=== PATIENT | male | born 1960 | race Caucasian/White ===

== ENCOUNTER 2025-02-07 11:01 | Inpatient (IN) | payer MEDICAID, OTHER ==
[~2025-02-07] VITALS: Ht 172.7 cm; Wt 97.7 kg
--- NOTE | 2025-02-07 11:53 | ED.PDOC ---
GI ASSESSMENT HPI Comments This is a 64 year old male presenting to the ED with chief complaint of groin pain. Patient reports that he has been experiencing left sided inguinal hernia pain for the past 6 days with associated nausea and constipation. Patient relays that he has had it reduced before, but is unable to reduce it now. Patient denies any vomiting, diarrhea, fever, or chills. Chief Complaint: Abdominal Pain Time Seen by MD: 11:51 Reviewed Notes: Nurses Notes, Medications, Allergies Allergies: Coded Allergies: NO KNOWN ALLERGIES (Unverified , 02/07/25) Information Source: Patient Mode of Arrival: Ambulatory Timing: Days Duration: Since onset Prehospital treatment: None Quality: Sharp Vomitus: None Stool: Normal Severity: Moderate Recent: None Recent Hx of: None Pain Location: Other (Lt groin) Modifying Factors: Nothing Associated sign and symptoms: Nausea, Abdominal Pain Past Medical History PAST MEDICAL HISTORY: Denies Surgical History: Hernia Repair Family History Family History: Reviewed,noncontributory to illness Social History Smoker: Non-Smoker Alcohol: Denies ETOH Use Drugs: Denies Drug Use Lives In: Home Constitutional: denies: chills, diaphoresis, fatigue, fever, malaise, sweats, weakness, others EENTM: denies: blurred vision, double vision, ear bleeding, ear discharge, ear drainage, ear pain, ear ringing, eye pain, eye redness, hearing loss, mouth pain, mouth swelling, nasal discharge, nose bleeding, nose congestion, nose pain, photophobia, tearing, throat pain, throat swelling, voice changes, others Respiratory: denies: cough, hemoptysis, orthopnea, SOB at rest, shortness of breath, SOB with excertion, stridor, wheezing, others Cardiovascular: denies: chest pain, dizzy spells, diaphoresis, Dyspnea on exertion, edema, irregular heart beat, left arm pain, lightheadedness, palpitations, PND, syncope, others Gastrointestinal: reports: abdominal pain, nausea; denies: abdomen distended, blood streaked bowels, constipated, diarrhea, dysphagia, difficulty swallowing, hematemesis, melena, poor appetite, poor fluid intake, rectal bleeding, rectal pain, vomiting, others Genitourinary: denies: burning, dysuria, flank pain, frequency, hematuria, incontinence, penile discharge, penile sore, pain, testicle pain, testicle swelling, urgency, others Neurological: denies: dizziness, fainting, headache, left sided numbness, left sided weakness, numbness, paresthesia, pre-existing deficit, right sided numbness, right sided weakness, seizure, speech problems, tingling, tremors, we akness, others Musculoskeletal: denies: back pain, gout, joint pain, joint swelling, muscle pain, muscle stiffness, neck pain, others Integumetry: denies: bruises, change in color, change in hair/nails, dryness, laceration, lesions, lumps, rash, wounds, others Allergic/Immunocompromised: denies: Difficulty Healing, Frequent Infections, Hives, Itching, others Hematologic/Lymphatic: denies: anemia, blood clots, easy bleeding, easy bruising, swollen glands, others Endocrine: denies: excessive hunger, excessive sweating, excessive thirst, excessive urination, flushing, intolerance to cold, intolerance to heat, unexplained weight gain, unexplained weight loss, others Psychiatric: denies: anxiety, bipolar disorder, depression, hopeless, panic disorder, schizophrenia, sleepless, suicidal, others All Other Systems: Reviewed and Negative Physical Exam General Appearance: Moderate Distress, Normal HEENT: Normal ENT Inspection, Pharynx Normal, TMs Normal Neck: Full Range of Motion, Non-Tender, Normal, Normal Inspection Respiratory: Chest Non-Tender, Lungs Clear, No Accessory Muscle Use, No Respiratory Distress, Normal Breath Sounds Cardiovascular: No Edema, No JVD, No Murmur, No Gallop, Normal Peripheral Pulses, Regular Rate/Rhythm Breast Exam: Deferred Gastrointestinal: No Organomegaly, Non Tender, No Pulsatile Mass, Normal Bowel Sounds, Soft Genitalia: Deferred Pelvic: Deferred Rectal: Deferred Extremities: No calf tenderness, Normal capillary refill, Normal inspection, Normal range of motion, Non-tender, No pedal edema Musculoskeletal : Apperance: Normal Neurologic: Alert, sagger preparer II-XII nml as Tested, No Motor Deficits, Normal Affect, Normal Mood, No Sensory Deficits Cerebellar Function: Normal Reflexes: Normal Skin: Dry, Normal Color, Warm Peripheral Pulses: 3+ Radial (R), 3+ Radial (L) Lymphatic: No Adenopathy Was a procedure done? Was a procedure done?: No GI differential Dx Differential Diagnosis: Constipation, Diverticular disease, Esophagitis, Gastritis/PUD, Gastroenteritis X-Ray, Labs, Meds, VS Vital Signs Date Time Temp Pulse Resp B/P (MAP) Pulse Ox O2 Delivery O2 Flow Rate FiO2 02/07/25 16:30 98.1 89 16 121/84 (96) 96 98.1 02/07/25 14:30 92 18 125/86 02/07/25 14:30 98.2 92 18 122/86 (98) 94 98.2 02/07/25 11:05 98.7 102 18 130/87 91 98.7 Lab Test 02/07/25 12:41 02/07/25 12:29 Range/Units White Blood Count 3.9 L 4.4-10.8 10^3/uL Red Blood Count 4.58 4.5-5.90 10^6/uL Hemoglobin 14.3 13.5-17.5 g/dL Hematocrit 42.1 41.0-53.0 % Mean Corpuscular Volume 92.1 80.0-100.0 fL Mean Corpuscular Hemoglobin 31.2 28.0-32.0 pg Mean Corpuscular Hemoglobin Concent 33.8 32.0-36.0 g/dL Red Cell Distribution Width 13.6 11.8-14.3 % Platelet Count 317 140-450 10^3/uL Mean Platelet Volume 6.3 L 6.9-10.8 fL Neutrophils (%) (Auto) 66.9 37.0-80.0 % Lymphocytes (%) (Auto) 21.9 10.0-50.0 % Monocytes (%) (Auto) 10.0 0.0-12.0 % Eosinophils (%) (Auto) 0.0 0.0-7.0 % Basophils (%) (Auto) 1.2 0.0-2.0 % Neutrophils # (Auto) 2.6 1.6-8.6 10 ^3/uL Lymphocytes # (Auto) 0.9 0.4-5.4 10 ^3/uL Monocytes # (Auto) 0.4 0-1.3 10 ^3/uL Eosinophils # (Auto) 0 0-0.8 10 ^3/uL Basophils # (Auto) 0 0-0.2 10 ^3/uL Nucleated Red Blood Cells 0.1 % Sodium Level 140 136-145 mmol/L Potassium Level 3.8 3.5-5.1 mmol/L Chloride Level 101 98-107 mmol/L Carbon Dioxide Level 31 20-31 mmol/L Anion Gap 8 5-15 Blood Urea Nitrogen 13 9-23 mg/dL Creatinine 0.63 L 0.700-1.30 mg/dL Glomerular Filtration Rate Calc 108 >90 mL/min BUN/Creatinine Ratio 20.6 H 10.0-20.0 Serum Glucose 85 74-106 mg/dL Calcium Level 9.6 8.7-10.4 mg/dL Urine Color Yellow Yellow Urine Clarity Clear Clear Urine pH 6.5 5.0-9.0 Urine Specific [place] 1.025 1.001-1.035 Urine Protein Negative Negative Urine Ketones Negative Negative Urine Blood Negative Negative /uL Urine Nitrite Negative Negative Urine Bilirubin Negative Negative Urine Urobilinogen 6 Negative mg/dL Urine Leukocyte Esterase Negative Negative /uL Urine RBC <1 0 - 3 /hpf Urine Microscopic WBC < 1 0-3 /HPF Urine Squamous Epithelial Cells None seen <5 /hpf Urine Bacteria None seen None Seen /hpf Urine Mucus Few None Seen Urine Glucose Normal Normal mg/dL Current Medications Medications (Trade) Dose Ordered Sig/Dayron Route Start Time Stop Time Status Last Admin Morphine Sulfate 4 mg ONCE ONCE IV 02/07/25 13:00 02/07/25 13:01 DC 02/07/25 14:30 Ondansetron HCl (Zofran) 4 mg ONCE ONCE IV 02/07/25 13:00 02/07/25 13:01 DC 02/07/25 14:29 Patient alert. Vitals stable. Came in because of left inguinal hernia. Answering all questions. Continues to have pain. Denies nausea vomiting. Had a bowel movement. Explained to the patient. Continue to monitor. Time of 1ST Reevaluation: 12:51 Reevaluation 1ST: Unchanged Patient Education/Counseling: Diagnosis, Treatment Family Education/Counseling: No Family Present SEPSIS Sepsis Screen Date sepsis recognized/suspect: Feb 07, 2025 Time Sepsis recognized/suspect: 1105 Recent Procedure: No On Antibiotic Therapy: No Respiratory Rate >20: No Heart Rate >90: No Temp<36 C (96.8 F) or >38.3 C: No SBP <90 or MAP <65 mmHG: No New Acute Mental Status Change: No Is the patient on CPAP, BIPAP,: No Physician Orders Ct Ab Pel Wo Con-No Oral Or Iv (02/07/25 11:52) Vital Signs Date Time Temp Pulse Resp B/P (MAP) Pulse Ox O2 Delivery O2 Flow Rate FiO2 02/07/25 16:30 98.1 89 16 121/84 (96) 96 98.1 02/07/25 14:30 92 18 125/86 02/07/25 14:30 98.2 92 18 122/86 (98) 94 98.2 02/07/25 11:05 98.7 102 18 130/87 91 98.7 Laboratory Tests Test 02/07/25 12:41 White Blood Count 3.9 10^3/uL (4.4-10.8) L Medications Medications Dose Ordered Sig/Dayron Route Start Time Stop Time Status Last Admin Dose Admin Morphine Sulfate 4 mg ONCE ONCE IV 02/07/25 13:00 02/07/25 13:01 DC 02/07/25 14:30 Ondansetron HCl 4 mg ONCE ONCE IV 02/07/25 13:00 02/07/25 13:01 DC 02/07/25 14:29 Departure 1 Departure Time of Disposition: 12:47 Impression: Primary Impression: Acute abdominal pain Additional Impression: Inguinal hernia Qualified Codes: K40.90 - Unilateral inguinal hernia, without obstruction or gangrene, not specified as recurrent Disposition: 09 ADMITTED INPATIENT Admit to: Med Surg Condition: Guarded Critical Care Note Critical Care Time?: No Stability Stability form required: No Heart Score Heart Score: Heart Score Response (Comments) Value History N/A 0 EKG N/A 0 Age N/A 0 Risk Factors N/A 0 Troponin N/A 0 Total 0 I personally scribed for MACARENA LEÓN MD ([email or web address]) on 02/07/25 at 11:53. Electronically submitted by Abiel Strickland ([email or web address]). MACARENA LEÓN MD Feb 07, 2025 11:53
[2025-02-07 12:44] LABS: Urine Protein, UAD Negative (Negative)
[2025-02-07 12:52] LABS: Hematocrit 42.1 % (41.0-53.0); Hemoglobin 14.3 g/dL (13.5-17.5); Mean Corpuscular Hemoglobin 31.2 pg (28.0-32.0); Mean Corpuscular Volume 92.1 fL (80.0-100.0); Nucleated Red Blood Cells % 0.1 %
[2025-02-07 13:00] LABS: Chloride 101 mmol/L (98-107); Potassium 3.8 mmol/L (3.5-5.1); Sodium 140 mmol/L (136-145)
[2025-02-07 13:01] LABS: Anion Gap 8 (5-15); Calcium 9.6 mg/dL (8.7-10.4); Carbon Dioxide 31 mmol/L (20-31)
[2025-02-07 13:06] LABS: BUN/Creatinine Ratio 20.6 (10.0-20.0); Blood Urea Nitrogen 13 mg/dL (9-23); Glucose 85 mg/dL (74-106)
[2025-02-07] MEDS: ONDANSETRON HCL 4 MG/2 ML VIAL IV ONE (14:29)
[2025-02-07] MEDS: MORPHINE SULFATE 4 MG/ML SYR/VIAL IV ONE (14:30)
[2025-02-07] MEDS ORDERED: ONDANSETRON HCL 4 MG/2 ML VIAL IV PRN (17:15)
[2025-02-07] MEDS ORDERED: DOCUSATE SOD 100 MG CAP PO PRN (17:15)
[2025-02-07] MEDS ORDERED: ACETAMINOPHEN 325 MG TAB PO PRN (17:15)
--- NOTE | 2025-02-07 18:09 | DVHHP2 ---
History of Present Illness Reason for Visit: Acute abdominal pain History of Present Illness The patient is a 64-year-old male with past medical history of hernia who presented to [facility] ED with complaint of groin pain. Patient reports that he has been experiencing left sided inguinal hernia pain for the past 6 days associated with nausea and constipation. Patient states that he had it reduced before, but is unable to reduce it now. Patient was seen and evaluated in the ED, laboratory data shows WBC 3.9, platelets 317, sodium 140, potassium 3.8, BUN 13, creatinine 0.63, GFR 108, glucose 85, calcium 9.6 blood pressure 121/84, heart rate 89, temperature 98.1 F, O2 saturation 94% on room air. Abdomen/pelvis CT results pending. Please see medication orders section in the computer. On my assessment, patient denied chest pain, no headache, dizziness, diaphoresis, shortness of breaths, no diarrhea, nausea, vomiting, fever, no chills. Patient was admitted for further evaluation and medical management. Past Medical History Hernia Past Surgical History Hernia Repair Family History Reviewed, noncontributory to the management of this case. Past Social History The patient lives at home, denies smoking, alcohol or illicit drugs abuse. Review of Systems Constitutional: Yes: Weakness; No: Fever, Chills, Sweats, Malaise, Other Eyes: No: Pain, Vision change, Conjunctivae inflammation, Eyelid inflammation, Other, Redness ENT: No: Ear pain, Ear discharge, Nose pain, Nose discharge, Nose congestion, Mouth pain, Mouth swelling, Throat pain, Throat swelling, Other Respiratory: No: Cough, Dry, Shortness of breath, SOB with excertion, Wheezing, Hemoptysis, Pleuritic Pain, Sputum, Wheezing, Other Cardiovascular: No: Chest Pain, Palpitations, Orthopnea, Paroxysmal Noc. Dyspnea, Edema, Lt Headedness, Other Gastrointestinal: Nausea, Abdominal Pain; No: Vomiting, Diarrhea, Constipation, Melena, Hematochezia, Other Genitourinary: No Dysuria, No Frequency, No Incontinence, No Hematuria, No Retention, No Other Musculoskeletal: No: other, neck pain, shoulder pain, arm pain, back pain, hand pain, leg pain, foot pain Skin: No: Rash, Lesions, Jaundice, Bruising, Other Neurological: No: Weakness, Numbness, Incoordination, Change in speech, Confusion, Seizures, Other Allergies: Coded Allergies: NO KNOWN ALLERGIES (Unverified , 02/07/25) Medications Current Medications Medications Dose Ordered Sig/Dayron Route Start Time Stop Time Status Last Admin Dose Admin Sodium Chloride 10 ml Q8HR IV 02/07/25 22:00 Acetaminophen/ Hydrocodone Bitart 1 tab Q4HP PRN PO 02/07/25 17:15 Ondansetron HCl 4 mg Q4HP PRN IV 02/07/25 17:15 Docusate Sodium 100 mg BIDPRN PRN PO 02/07/25 17:15 Acetaminophen 650 mg Q6HP PRN PO 02/07/25 17:15 Exam Vital Signs Vital Signs Date Time Temp Pulse Resp B/P (MAP) Pulse Ox O2 Delivery O2 Flow Rate FiO2 02/07/25 16:30 98.1 89 16 121/84 (96) 96 98.1 General Appearance: Alert, Oriented X3, Cooperative, No acute distress HEENT: Atraumatic, PERRLA, EOMI, Mucous membr. moist/pink Respiratory: Clear to auscultation, Normal air movement Cardiovascular: Regular rate, Normal S1, Normal S2, No murmurs Abdominal: Normal bowel sounds, Soft, No tenderness, No hepatospenomegaly, No masses Extremities: No clubbing, No cyanosis, No edema, Normal pulses, No tenderness/swelling Skin: No rashes, No significant lesion Neuro: Normal speech, Normal tone, Sensation intact, Cranial nerves 3-12 NL, Reflexes 2+, Other (Generalized weakness) Psych/Mental Status: Mental status NL, Mood NL Labs/Xrays Labs Test 02/07/25 12:41 02/07/25 12:29 Range/Units White Blood Count 3.9 L 4.4-10.8 10^3/uL Red Blood Count 4.58 4.5-5.90 10^6/uL Hemoglobin 14.3 13.5-17.5 g/dL Hematocrit 42.1 41.0-53.0 % Mean Corpuscular Volume 92.1 80.0-100.0 fL Mean Corpuscular Hemoglobin 31.2 28.0-32.0 pg Mean Corpuscular Hemoglobin Concent 33.8 32.0-36.0 g/dL Red Cell Distribution Width 13.6 11.8-14.3 % Platelet Count 317 140-450 10^3/uL Mean Platelet Volume 6.3 L 6.9-10.8 fL Neutrophils (%) (Auto) 66.9 37.0-80.0 % Lymphocytes (%) (Auto) 21.9 10.0-50.0 % Monocytes (%) (Auto) 10.0 0.0-12.0 % Eosinophils (%) (Auto) 0.0 0.0-7.0 % Basophils (%) (Auto) 1.2 0.0-2.0 % Neutrophils # (Auto) 2.6 1.6-8.6 10 ^3/uL Lymphocytes # (Auto) 0.9 0.4-5.4 10 ^3/uL Monocytes # (Auto) 0.4 0-1.3 10 ^3/uL Eosinophils # (Auto) 0 0-0.8 10 ^3/uL Basophils # (Auto) 0 0-0.2 10 ^3/uL Nucleated Red Blood Cells 0.1 % Sodium Level 140 136-145 mmol/L Potassium Level 3.8 3.5-5.1 mmol/L Chloride Level 101 98-107 mmol/L Carbon Dioxide Level 31 20-31 mmol/L Anion Gap 8 5-15 Blood Urea Nitrogen 13 9-23 mg/dL Creatinine 0.63 L 0.700-1.30 mg/dL Glomerular Filtration Rate Calc 108 >90 mL/min BUN/Creatinine Ratio 20.6 H 10.0-20.0 Serum Glucose 85 74-106 mg/dL Calcium Level 9.6 8.7-10.4 mg/dL Urine Color Yellow Yellow Urine Clarity Clear Clear Urine pH 6.5 5.0-9.0 Urine Specific [place] 1.025 1.001-1.035 Urine Protein Negative Negative Urine Ketones Negative Negative Urine Blood Negative Negative /uL Urine Nitrite Negative Negative Urine Bilirubin Negative Negative Urine Urobilinogen 6 Negative mg/dL Urine Leukocyte Esterase Negative Negative /uL Urine RBC <1 0 - 3 /hpf Urine Microscopic WBC < 1 0-3 /HPF Urine Squamous Epithelial Cells None seen <5 /hpf Urine Bacteria None seen None Seen /hpf Urine Mucus Few None Seen Urine Glucose Normal Normal mg/dL Abdomen/pelvis CT results pending SEPSIS Sepsis Screen Date sepsis recognized/suspect: Feb 07, 2025 Time Sepsis recognized/suspect: 1105 Recent Procedure: No On Antibiotic Therapy: No Respiratory Rate >20: No Heart Rate >90: No Temp<36 C (96.8 F) or >38.3 C: No SBP <90 or MAP <65 mmHG: No New Acute Mental Status Change: No Is the patient on CPAP, BIPAP,: No Physician Orders Ct Ab Pel Wo Con-No Oral Or Iv (02/07/25 11:52) Allergies (02/07/25 17:05) Code Status (02/07/25 17:05) Sodium Chloride Lock (Saline Lock Ns) (02/07/25 22:00) Docusate Sodium Capsule (Colace Capsule) (02/07/25 17:15) Complete Blood Count (02/08/25 04:00) Comprehensive Metabolic Panel (02/08/25 04:00) Condition: Serious (02/07/25 17:05) Acetaminophen Tablet (Tylenol Tablet) (02/07/25 17:15) Clear Liq Diet (02/07/25 Dinner) Bedrest With Bathroom Privileg (02/07/25 17:05) Sequential Compression Device (02/07/25 ) Oxygen Per Hour (02/07/25 17:05) Hydrocodone-Acet 5/325mg Tab ([place] 5/32 (02/07/25 17:15) Ondansetron Hcl (Zofran) (02/07/25 17:15) Vital Signs Date Time Temp Pulse Resp B/P (MAP) Pulse Ox O2 Delivery O2 Flow Rate FiO2 02/07/25 16:30 98.1 89 16 121/84 (96) 96 98.1 02/07/25 14:30 92 18 125/86 02/07/25 14:30 98.2 92 18 122/86 (98) 94 98.2 02/07/25 11:05 98.7 102 18 130/87 91 98.7 Laboratory Tests Test 02/07/25 12:41 White Blood Count 3.9 10^3/uL (4.4-10.8) L Medications Medications Dose Ordered Sig/Dayron Route Start Time Stop Time Status Last Admin Dose Admin Morphine Sulfate 4 mg ONCE ONCE IV 02/07/25 13:00 02/07/25 13:01 DC 02/07/25 14:30 4 MG Ondansetron HCl 4 mg ONCE ONCE IV 02/07/25 13:00 02/07/25 13:01 DC 02/07/25 14:29 4 MG Assessment/Plan Assessment/Plan Acute abdominal pain Inguinal hernia Generalized weakness Plan 1. Admit to med surge unit 2. Breathing treatment 3. Pain control management 4. Management of fluids and electrolytes 5. Consultation for hospitalist 6. Diagnostic tests abdomen/pelvis CT 7. DVT prophylaxis on SCDs 8. Repeat labs CBC, CMP in a.m. 9. Continue with current medical management 10. Treatment plan discussed with patient and RN. Patient verbalized understanding. Plan discussed with: Patient, Other (RN) My Orders Orders - RADHA PEARSON DNP Procedure Category Date Status Time Allergies CHRISTOPH 02/07/25 In Process 17:05 Code Status CODE 02/07/25 Transmitted 17:05 Sodium Chloride Lock PHA 02/07/25 In Process (Saline Lock Ns) 22:00 Docusate Sodium PHA 02/07/25 In Process Capsule (Colace 17:15 Complete Blood Count LAB 02/08/25 Verified 04:00 Comprehensive LAB 02/08/25 Verified Metabolic Panel 04:00 Condition: Serious CHRISTOPH 02/07/25 In Process 17:05 Acetaminophen Tablet PHA 02/07/25 In Process (Tylenol Tablet) 17:15 Clear Liq Diet DIET 02/07/25 Transmitted Dinner Bedrest With Bathroom CHRISTOPH 02/07/25 In Process Privileg 17:05 Sequential CHRISTOPH 02/07/25 In Process Compression Device Oxygen Per Hour RT 02/07/25 Transmitted 17:05 Hydrocodone-Acet PHA 02/07/25 In Process 5/325mg Tab ([place] 17:15 Ondansetron Hcl PHA 02/07/25 In Process (Zofran) 17:15 Problem List: (1) Acute abdominal pain (2) Inguinal hernia (3) Generalized weakness Date of Service: Feb 07, 2025 Billing Provider: RADHA PEARSON DNP Common Visit Codes: [id number] INP/OBS CARE (HIGH) RADHA PEARSON DNP Feb 07, 2025 18:09
[2025-02-07] MEDS ORDERED: NITROGLYCERIN 0.4 MG SL TAB SL PRN (18:15)
[2025-02-07] MEDS ORDERED: MORPHINE SULFATE INJ 2 MG/ml SYRG IV PRN (18:15)
--- NOTE | 2025-02-07 21:48 | DVH ---
EXAM: CT CT AB PEL WO CON-NO ORAL OR IV History: hernia Comparison Study: None TECHNIQUE: Multidetector spiral CT of the abdomen was performed from lung bases to pubic symphysis. Imaging was performed without IV contrast. Axial, coronal and sagittal multiplanar reformats were obtained from the axial data set by the technologist. Radiation Dose : 1. Abdomen/Pelvis: CTDIvol 6.48 mGy, DLP 368.88 mGy*cm. FINDINGS: Evaluation of solid organs is limited due to lack of intravenous contrast use. Lung Bases: No acute or significant lung base finding. Normal heart size. No pleural or pericardial effusion. Liver: The liver is normal in size. No focal lesions. Gallbladder and Biliary Tree: Cholelithiasis noted without secondary findings of cholecystitis or biliary obstruction. Spleen: Unremarkable Pancreas: The pancreas is grossly normal in appearance. Adrenal Glands: Unremarkable Kidneys: Kidneys are grossly normal without calculi or hydronephrosis. Bladder: Grossly unremarkable for degree of distention. Bowel: Left inguinal hernia containing the proximal sigmoid colon and fluid. Hernia sac measures 6.4 x 5.0 cm and hernia neck measuring 3.6 cm. No obstruction. Large volume of stool throughout the colon. Ascites: Absent Lymphadenopathy: No mesenteric, retroperitoneal or periportal lymphadenopathy. Abdominal Wall and Mesentery: Unremarkable. Vasculature: The visualized abdominal aorta is normal in size and caliber. Evaluation of abdominal and pelvic vessels is limited due to lack of intravenous contrast. Pelvic Organs: Unremarkable Musculoskeletal: No aggressive focal bony lesions, acute fractures or dislocation. IMPRESSION: Left inguinal hernia containing the proximal sigmoid colon. No obvious obstruction. Large volume of stool throughout the colon. Radiation optimization: All CT scans at this facility use at least one of these dose optimization techniques: automated exposure control mA and/or kV adjustment per patient size (includes targeted exams where dose is matched to clinical indication) or iterative reconstruction.
[2025-02-07] MEDS: SODIUM CHLOR 0.9% PF (SALINE LOCK) 10ML VIAL/SYR IV SCH (22:18)
[2025-02-07 22:41] VITALS: BP 107/72; PULSE 76; RESP 18; TEMP 98.1; O2SAT 96
[2025-02-08] MEDS: HYDROcodone-ACET 5/325MG TAB PO PRN (01:41)
[2025-02-08 04:17] LABS: Hematocrit 39.0 % (41.0-53.0); Hemoglobin 13.3 g/dL (13.5-17.5); Mean Corpuscular Hemoglobin 31.0 pg (28.0-32.0); Mean Corpuscular Volume 90.5 fL (80.0-100.0); Nucleated Red Blood Cells % 0.1 %
[2025-02-08 04:35] LABS: Alanine Aminotransferase 11 U/L (7-40); Alkaline Phosphatase 90 U/L (46-116); Calcium 9.2 mg/dL (8.7-10.4); Carbon Dioxide 30 mmol/L (20-31); Chloride 103 mmol/L (98-107); Glucose 91 mg/dL (74-106); Potassium 3.7 mmol/L (3.5-5.1)
[2025-02-08 04:36] LABS: Albumin 3.9 g/dL (3.2-4.8); Anion Gap 7 (5-15); Sodium 140 mmol/L (136-145)
[2025-02-08 04:37] LABS: BUN/Creatinine Ratio 26.2 (10.0-20.0); Blood Urea Nitrogen 16 mg/dL (9-23); Total Protein 6.9 g/dL (5.7-8.2)
[2025-02-08 04:39] LABS: Bilirubin, Total 0.6 mg/dL (0.2-1.0)
[2025-02-08 05:25] VITALS: BP 107/72; PULSE 76; RESP 20; TEMP 98.1; O2SAT 96
[2025-02-08 05:34] VITALS: BP 107/72; PULSE 76; RESP 18; TEMP 98.1; O2SAT 96
[2025-02-08] MEDS ORDERED: POLYETHYLENE GLYCOL 17 GM PWDR PO ONE (08:45)
[2025-02-08] MEDS ORDERED: ENOXAPARIN SOD 40 MG/0.4 ML SYRINGE SC SCH (10:00)
[2025-02-08] MEDS ORDERED: PANTOPRAZOLE 40 MG/10 ML VIAL INJ IV SCH (10:00)
--- NOTE | 2025-02-08 19:57 | DVHDSRES ---
Discharge Summary Date of Admission Resident Creating Document: TONY MARQUIS RESIDENT Feb 07, 2025 at 18:08 Date of Discharge: Feb 08, 2025 Admitting Diagnosis #Acute intractable abdominal pain #Acute Inguinal hernia possible incarceration vs strangulation #acute Generalized weakness due to above. Wounds: ungerminated, patient eloped from the [facility] Labs/Diagnostic Data: Laboratory Results Test 02/08/25 03:29 02/08/25 03:24 02/07/25 12:29 White Blood Count 3.8 10^3/uL (4.4-10.8) Red Blood Count 4.31 10^6/uL (4.5-5.90) Hemoglobin 13.3 g/dL (13.5-17.5) Hematocrit 39.0 % (41.0-53.0) Mean Corpuscular Volume 90.5 fL (80.0-100.0) Mean Corpuscular Hemoglobin 31.0 pg (28.0-32.0) Mean Corpuscular Hemoglobin Concent 34.2 g/dL (32.0-36.0) Red Cell Distribution Width 13.3 % (11.8-14.3) Platelet Count 297 10^3/uL (140-450) Mean Platelet Volume 6.5 fL (6.9-10.8) Neutrophils (%) (Auto) 65.1 % (37.0-80.0) Lymphocytes (%) (Auto) 22.0 % (10.0-50.0) Monocytes (%) (Auto) 12.2 % (0.0-12.0) Eosinophils (%) (Auto) 0.2 % (0.0-7.0) Basophils (%) (Auto) 0.5 % (0.0-2.0) Neutrophils # (Auto) 2.5 10 ^3/uL (1.6-8.6) Lymphocytes # (Auto) 0.8 10 ^3/uL (0.4-5.4) Monocytes # (Auto) 0.5 10 ^3/uL (0-1.3) Eosinophils # (Auto) 0 10 ^3/uL (0-0.8) Basophils # (Auto) 0 10 ^3/uL (0-0.2) Nucleated Red Blood Cells 0.1 % Sodium Level 140 mmol/L (136-145) Potassium Level 3.7 mmol/L (3.5-5.1) Chloride Level 103 mmol/L (98-107) Carbon Dioxide Level 30 mmol/L (20-31) Anion Gap 7 (5-15) Blood Urea Nitrogen 16 mg/dL (9-23) Creatinine 0.61 mg/dL (0.700-1.30) Glomerular Filtration Rate Calc 109 mL/min (>90) BUN/Creatinine Ratio 26.2 (10.0-20.0) Serum Glucose 91 mg/dL (74-106) Hemoglobin A1c 5.7 % A1C (<5.7) Calcium Level 9.2 mg/dL (8.7-10.4) Magnesium Level 2.0 mg/dL (1.6-2.6) Total Bilirubin 0.6 mg/dL (0.2-1.0) Aspartate Amino Transferase (AST) 16 U/L (13-40) Alanine Aminotransferase (ALT) 11 U/L (7-40) Alkaline Phosphatase 90 U/L (46-116) Total Protein 6.9 g/dL (5.7-8.2) Albumin 3.9 g/dL (3.2-4.8) Thyroid Stimulating Hormone (TSH) 0.39 uIU/mL (0.55-4.78) Vitamin B12 Level 406 pg/mL (211-911) Vitamin D 25-Hydroxy 29.2 ng/mL (30.0-100) Urine Color Yellow (Yellow) Urine Clarity Clear (Clear) Urine pH 6.5 (5.0-9.0) Urine Specific [place] 1.025 (1.001-1.035) Urine Protein Negative (Negative) Urine Ketones Negative (Negative) Urine Blood Negative /uL (Negative) Urine Nitrite Negative (Negative) Urine Bilirubin Negative (Negative) Urine Urobilinogen 6 mg/dL (Negative) Urine Leukocyte Esterase Negative /uL (Negative) Urine RBC <1 /hpf (0 - 3) Urine Microscopic WBC < 1 /HPF (0-3) Urine Squamous Epithelial Cells None seen /hpf (<5) Urine Bacteria None seen /hpf (None Seen) Urine Mucus Few (None Seen) Urine Glucose Normal mg/dL (Normal) Other Laboratory Tests 02/08/25 03:29 Brief Hx & Hospital Course: PHI: Tamir Merida is a 64-year-old male with past medical history of hernia who presented to [facility] ED with complaint of groin pain. Patient reports that he has been experiencing left sided inguinal hernia pain for the past 6 days associated with nausea and constipation. Patient states that he had it reduced before, but is unable to reduce it now. Patient was seen and evaluated in the ED, laboratory data shows WBC 3.9, platelets 317, sodium 140, potassium 3.8, BUN 13, creatinine 0.63, GFR 108, glucose 85, calcium 9.6 blood pressure 121/84, heart rate 89, temperature 98.1 F, O2 saturation 94% on room air. Abdomen/pelvis CT results pending. Please see medication orders section in the computer. On my assessment, patient denied chest pain, no headache, dizziness, diaphoresis, shortness of breaths, no diarrhea, nausea, vomiting, fever, no chills. Patient was admitted for further evaluation and medical management. Past Medical History Hernia Past Surgical History Hernia Repair Family History Reviewed, noncontributory to the management of this case. Past Social History The patient lives at home, denies smoking, alcohol. History of prior illicit drugs abuse. Note: On 02/08/25 09:45 am, I was informed by Nurse Adelia, that the patient has eloped from the hospital. The patient has eloped form [facility] ED prior my evaluation and assessment of the patient. The patient is known for history of meth use. Nurse: Adelia Mckinney Lvn LVN notified the housemaid and security. Also, [facility] dispatch had been notified; report given to repair service dispatcher, report number is [id number]. I have informed Dr. Powers. ROS: Not done, the patient has eloped from [facility]. Physical Exam: Not done, the patient has eloped from [facility]. Consults/Reason for consult surgical consult: Left inguinal hernia Condition at Discharge: Undetermined Final Diagnosis/Problems List ungerminated, patient eloped from the [facility] Secondary Diagnosis: ungerminated, patient eloped from the [facility] Discharge Disposition: Eloped Discharge Statement: Note: On 02/08/25 09:45 am, I was informed by Nurse Delvalle, that the patient has eloped from the hospital. The patient has eloped form [facility] ED prior my evaluation and assessment of the patient. The patient is known for history of meth use. Nurse: Adelia Mckinney Lvn LVN notified the housemaid and security. Also, [facility] dispatch had been notified; report given to repair service dispatcher, report number is [id number]. I have informed Dr. Powers. ASSESSMENT ASSESSMENT Assessment #Acute intractable abdominal pain #Acute Inguinal hernia possible incarceration vs strangulation #acute Generalized weakness due to above. Note: On 02/08/25 09:45 am, I was informed by Nurse Adelia, that the patient has eloped from the hospital. The patient has eloped form [facility] ED prior my evaluation and assessment of the patient. The patient is known for history of meth use. Nurse: Adelia Mckinney Lvn LVN notified the housemaid and security. Also, [facility] dispatch had been notified; report given to repair service dispatcher, report number is [id number]. I have informed Dr. Powers. Visit Coding STANDARD RES Billing Provider: RC MALAGON MD Date of Service if different f: Feb 08, 2025 Common Visit Codes: 52688-GOM/OBS DISCH DAY >30min TONY MARQUIS RESIDENT Feb 08, 2025 19:57
== END 2025-02-08 09:30 | disposition left against medical advice (07) | DRG 254 ==
LOC: ER 11:01 → OVERFLOW 18:08
PROVIDERS: ADMIT Student in an Organized Health Care Education/Training Program; ATTEND Student in an Organized Health Care Education/Training Program
DX: K40.30 Unilateral inguinal hernia, with obstruction, without gangrene, not specified as recurrent (principal); K59.00 Constipation, unspecified; Z53.29 Procedure and treatment not carried out because of patient's decision for other reasons; Z79.899 Other long term (current) drug therapy
CPT/HCPCS: 36415; 74176; 80048; 80053; 81001; 82306; 82607; 83036; 83735; 84443; 85025; 96374; 96375; G0378; J2405